=== PATIENT | male | born 1995 | race Caucasian/White ===

== ENCOUNTER 2017-01-01 09:56 | Emergency (ER) | payer OTHER ==
[2017-01-01 10:15] VITALS: BP 138/69
--- NOTE | 2017-01-01 11:23 | Diag Imaging Result Document ---
PROCEDURE NAME: FOOT COMPLETE LEFT - 01/01/2017 LEFT FOOT, 3 VIEWS: FINDINGS: There is no evidence of acute fracture or dislocation. There is soft tissue swelling over the forefoot. IMPRESSION: No acute bony disease.
--- NOTE | 2017-01-01 11:34 | PROVIDER DOCUMENTATION ---
HPI-Musculoskeletal Pain/Inj - GENERAL Chief Complaint: Extremity Injury Stated Complaint: FOOT INJURY Time Seen by Provider: 01/01/17 11:09 Source: patient - HX OF PRESENT ILLNESS-MUSKULOSKELTAL Nature of Presenting Problem: 21 y/o WM c/o L foot pain x 1 hour. Pt states that he dropped a cement weight on it, approximately 20 lbs. States that he cannot bear weight on it due to pain. Denies any ankle, knee, toe pain. No other sxs reported. Review of Systems - Adult - REVIEW OF SYSTEMS - ADULT Constitutional: reports: no symptoms reported. denies: chills, fever Eyes: reports: no symptoms reported. denies: blurred vision, double vision Ears, Nose, Mouth & Throat: reports: no symptoms reported. denies: ear pain, nose pain Cardiovascular: reports: no symptoms reported. denies: chest pain, palpitations Respiratory: reports: no symptoms reported. denies: dyspnea on exertion, shortness of breath Gastrointestinal: reports: no symptoms reported. denies: nausea, vomiting Genitourinary: reports: no symptoms reported. denies: dysuria, frequency Musculoskeletal: reports: see HPI, joint pain. denies: back pain, neck pain Integumentary: reports: no symptoms reported. denies: nail changes, rash Neurological: reports: no symptoms reported. denies: numbness, paresthesia Psychiatric: reports: no symptoms reported Endocrine: reports: no symptoms reported. denies: cold intolerance, heat intolerance Hematologic/Lymphatic: reports: no symptoms reported. denies: easy bruising, prolonged bleeding Allergic/Immunologic: reports: no symptoms reported All Other Systems: Reviewed and Negative Past History - Adult - PAST MEDICAL HISTORY-ADULT Review of Records: reports: Nursing Assessment Review, Medications Reviewed - SOCIAL HISTORY Smoking: denies Physical Exam-Injury Related - Physical Exam-Injury Related General Appearance: alert, mild distress Eyes: pink conjunctivae Head, Ears, Nose, Mouth & Throat: normocephalic/atraumatic Neck: supple, normal inspection Respiratory: no respiratory distress Cardiovascular: normal peripheral pulses, regular rate, rhythm Peripheral Pulses: dorsalis-pedis (R): 1+, dorsalis-pedis (L): 1+ Back Exam: normal inspection Extremity: normal capillary refill, swelling (L midfoot), tenderness (L midfoot , dorsal aspect). negative: abnormal NV exam, deformity, pulse deficit Integumentary: normal color, warm/dry, blanching Neurologic: negative: aphasia Psych/Mental Status: normal mood/affect, normal thought content, normal thought process, oriented x 3 Progress - XRAY 1 XRAY: Left XRAY Study: Foot Impression: See EMR Report (No acute disease, per Dr. Hooks) Departure - Departure Time of Disposition Order: 11:28 DIAGNOSIS: Soft tissue injury of foot Qualifiers: Encounter type: initial encounter Laterality: left Qualified Code(s): S99.922A - Unspecified injury of left foot, initial encounter Disposition: HOME 01 Certified Medical Emergency: Emergent Condition: Stable Additional Instructions: Take medications as directed. Follow up with specialist for further management. RICE as needed, no more than 10 minutes of ice at a time. No weight bearing for 7 days or until cleared by specialist. ED Follow Up Instructions: You have been treated by a care provider in the Emergency Department. These instructions are being provided to you so you can have an understanding of how to care for yourself upon discharge. Upon discharge from the Emergency Department, you are responsible for making arrangements for follow-up care by a physician of your choice. Take all prescribed medications as directed. Return to the Emergency Department immediately for any new or worsening symptoms. You may call the Physician Referral phone number at [phone] to obtain a list of Physicians who are taking new patients. Prescriptions: Ibuprofen [Motrin] 800 mg PO Q8H PRN PRN #30 tablet PRN Reason: inflammation Famotidine [Pepcid] 20 mg PO DAILY #20 tablet Referrals: None,PCP [Primary Care Provider] - Edwardo Prater MD [STAFF PHYSICIAN] - Attestation - Physician/ BARBY Attestation Patient care was provided by Advanced Practice Provider:: Yes Advanced Practice Provider:: Eli Garcia Advanced Practice Provider documentation review:: The Mid-level provider documentation, treatment plan and medical decision making was reviewed by the physician who agrees with all treatment and medical decision making by the P.
[2017-01-01] MEDS ORDERED: TORADOL IM ONE (11:39)
== END 2017-01-01 12:16 | disposition home or self-care (01) ==
LOC: ED 09:56
DX: S99.922A Unspecified injury of left foot, initial encounter (principal); M79.672 Pain in left foot; R22.42 Localized swelling, mass and lump, left lower limb; W20.8XXA Other cause of strike by thrown, projected or falling object, initial encounter
CPT/HCPCS: J1885